=== PATIENT | male | born 1985 | race Caucasian/White ===

== ENCOUNTER 2017-11-14 15:02 | Emergency (ER) | payer OTHER ==
[~2017-11-14] VITALS: Ht 177.8 cm; Wt 90.7 kg
[2017-11-14] MEDS ORDERED: AMOXICILLIN500 MG PO (16:00)
== END 2017-11-14 16:09 | disposition home or self-care (01) ==
LOC: ED 15:02
DX: H66.91 Otitis media, unspecified, right ear (principal); H72.91 Unspecified perforation of tympanic membrane, right ear; F17.200 Nicotine dependence, unspecified, uncomplicated
CPT/HCPCS: 99283